=== PATIENT | male | born 1965 | race Caucasian/White ===

== ENCOUNTER 2022-02-24 18:26 | Inpatient (IN) | payer OTHER ==
[2022-02-25] MEDS ORDERED: VANCOMYCIN 1 GM in D5W (PRE-DOCKED) 1,000 MG/250 ML IVPB ONE (00:34)
[2022-02-25] MEDS ORDERED: ACETAMINOPHEN 1000 MG/100 ML BAG IVPB ONE (00:34)
[2022-02-25] MEDS ORDERED: CEFEPIME HCL/D5W 1 GM/50 ML BAG IVPB ONE (00:34)
[2022-02-25] MEDS ORDERED: CEFEPIME 1 GM/100 ML BAG IVPB ONE ×2 (01:26→21:49)
[2022-02-25 01:27] LABS: BASO % 0.1 % (0-2.0); EOS % 1.7 % (0-4.5); HEMATOCRIT 42.6 % (35.4-49); HEMOGLOBIN 14.2 GM/dL (11.7-16.9); LYMPH % 31.8 % (8-40); MCH 28.2 pg (25.7-33.7); MCHC 33.3 g/dl (32.0-35.9); MEAN CELL VOLUME 84.7 fl (80-96); MEAN PLT VOLUME 8.4 fl (7.5-11.1); MONO % 6.2 % (3.8-10.2); NEUT % 60.2 % (42.8-82.8); PLATELET COUNT 310 10^3/uL (134-434); RBC 5.03 M/mm3 (4.00-5.60); RDW 12.9 % (11.9-15.9)
[2022-02-25] MEDS ORDERED: VANCOMYCIN/WATER FOR INJ (PEG) 1,000 MG/200 ML BAG IVPB ONE ×2 (01:27→21:49)
[2022-02-25] MEDS ORDERED: ACETAMINOPHEN INJECTION 100 ML IVPB ONE (01:28)
[2022-02-25] MEDS ORDERED: PIPERACILLIN/TAZOB 3.375 GM 3.375 GM in DEXTROSE 5%-WATER - 50 ML IVPB ONE (06:30)
[2022-02-25] MEDS: INSULIN SLIDING SCALE (NOVOLOG) 1 VIAL SQ SCH ×4 (08:10→22:57)
[2022-02-25] MEDS ORDERED: ENOXAPARIN NA (PORCINE) 40 MG/0.4 ML DISP.SYRIN SQ ONE (12:19)
[2022-02-25] MEDS: ENOXAPARIN NA (PORCINE) 40 MG/0.4 ML DISP.SYRIN SQ SCH (12:23)
[2022-02-25 14:55] LABS: BASO % 0.5 % (0-2.0); EOS % 0.9 % (0-4.5); HEMATOCRIT 42.8 % (35.4-49); HEMOGLOBIN 14.4 GM/dL (11.7-16.9); LYMPH % 25.4 % (8-40); MCH 28.3 pg (25.7-33.7); MCHC 33.7 g/dl (32.0-35.9); MEAN CELL VOLUME 84.1 fl (80-96); MEAN PLT VOLUME 7.9 fl (7.5-11.1); MONO % 5.8 % (3.8-10.2); NEUT % 67.4 % (42.8-82.8); PLATELET COUNT 321 10^3/uL (134-434); RBC 5.09 M/mm3 (4.00-5.60); RDW 13.1 % (11.9-15.9); WHITE BLOOD COUNT 11.5 K/mm3 (4.0-10.0)
[2022-02-25 15:16] LABS: BLOOD UREA NITROGEN 12.1 mg/dL (7-18); CALCIUM 8.7 mg/dL (8.5-10.1); MAGNESIUM 1.7 mg/dL (1.8-2.4)
[2022-02-25 15:17] LABS: ALBUMIN 3.2 g/dl (3.4-5.0)
[2022-02-25 15:19] LABS: PHOSPHOROUS 3.4 mg/dL (2.5-4.9)
[2022-02-25 15:20] LABS: CREATININE 0.7 mg/dL (0.55-1.3)
[2022-02-25 15:21] LABS: BILIRUBIN,TOTAL 0.4 mg/dL (0.2-1); TOT PROT 6.8 g/dl (6.4-8.2)
[2022-02-25] MEDS: CEFEPIME 1 GM in DEXTROSE 5%-WATER 100 ML IVPB SCH (22:00)
[2022-02-25] MEDS: VANCOMYCIN/WATER FOR INJ (PEG) 1,000 MG/200 ML BAG IVPB SCH (22:52)
[2022-02-25] MEDS ORDERED: metroNIDAZOLE 250 MG TABLET ONE (23:02)
[2022-02-25] MEDS: INSULIN (LEVEMIR) 100 UNITS/ML UNITS SQ SCH (23:09)
[2022-02-25] MEDS: metroNIDAZOLE 250 MG TABLET PO SCH (23:09)
[2022-02-26 06:07] VITALS: RESP 18
[2022-02-26] MEDS: CEFEPIME 1 GM in DEXTROSE 5%-WATER 100 ML IVPB SCH ×3 (06:39→17:57)
[2022-02-26] MEDS: INSULIN SLIDING SCALE (NOVOLOG) 1 VIAL SQ SCH ×4 (06:40→23:01)
[2022-02-26] MEDS: metroNIDAZOLE 250 MG TABLET PO SCH ×3 (06:48→22:56)
[2022-02-26] MEDS: VANCOMYCIN/WATER FOR INJ (PEG) 1,000 MG/200 ML BAG IVPB SCH ×2 (08:07→21:04)
[2022-02-26 08:43] LABS: BASO % 0.2 % (0-2.0); EOS % 1.4 % (0-4.5); HEMATOCRIT 41.4 % (35.4-49); HEMOGLOBIN 13.8 GM/dL (11.7-16.9); MCH 28.2 pg (25.7-33.7); MCHC 33.4 g/dl (32.0-35.9); MEAN CELL VOLUME 84.3 fl (80-96); MEAN PLT VOLUME 7.9 fl (7.5-11.1); MONO % 6.6 % (3.8-10.2); NEUT % 65.8 % (42.8-82.8); PLATELET COUNT 315 10^3/uL (134-434); RBC 4.91 M/mm3 (4.00-5.60); RDW 12.7 % (11.9-15.9); WHITE BLOOD COUNT 10.6 K/mm3 (4.0-10.0)
[2022-02-26 09:03] LABS: CALCIUM 8.3 mg/dL (8.5-10.1)
[2022-02-26 09:04] LABS: BLOOD UREA NITROGEN 11.1 mg/dL (7-18); MAGNESIUM 1.7 mg/dL (1.8-2.4)
[2022-02-26 09:06] LABS: CREATININE 0.5 mg/dL (0.55-1.3)
[2022-02-26 09:08] LABS: TOT PROT 6.5 g/dl (6.4-8.2)
[2022-02-26 09:09] LABS: BILIRUBIN,TOTAL 0.4 mg/dL (0.2-1)
[2022-02-26 09:10] LABS: INR 1.05 (0.83-1.09); PROTHROMBIN TIME (PATIENT) 12.1 SEC (9.7-13.0)
[2022-02-26] MEDS ORDERED: MAGNESIUM OXIDE 400 MG TABLET (FP) PO ONE (09:51)
[2022-02-26] MEDS: ENOXAPARIN NA (PORCINE) 40 MG/0.4 ML DISP.SYRIN SQ SCH (09:58)
[2022-02-26] MEDS: LOSARTAN POTASSIUM 25 MG TABLET PO SCH (11:03)
[2022-02-26 15:17] VITALS: TEMP 98
[2022-02-26] MEDS: INSULIN (LEVEMIR) 100 UNITS/ML UNITS SQ SCH (23:00)
[2022-02-27] MEDS: CEFEPIME 1 GM in DEXTROSE 5%-WATER 100 ML IVPB SCH (02:22)
[2022-02-27] MEDS: INSULIN SLIDING SCALE (NOVOLOG) 1 VIAL SQ SCH ×2 (07:11→11:44)
[2022-02-27] MEDS: metroNIDAZOLE 250 MG TABLET PO SCH ×2 (07:12→13:16)
[2022-02-27] MEDS ORDERED: CEFTRIAXONE 2 GM in DEXTROSE 5%-WATER 100 ML IVPB ONE (08:13)
[2022-02-27] MEDS: VANCOMYCIN/WATER FOR INJ (PEG) 1,000 MG/200 ML BAG IVPB SCH (08:17)
[2022-02-27] MEDS: ENOXAPARIN NA (PORCINE) 40 MG/0.4 ML DISP.SYRIN SQ SCH (09:02)
[2022-02-27] MEDS: LOSARTAN POTASSIUM 25 MG TABLET PO SCH (09:02)
[2022-02-27] MEDS ORDERED: DAPTOMYCIN 500 MG in SODIUM CHLORIDE 50 ML IVPB ONE (09:30)
[2022-02-27 11:11] LABS: BASO % 0.3 % (0-2.0); EOS % 1.2 % (0-4.5); HEMATOCRIT 40.3 % (35.4-49); HEMOGLOBIN 13.7 GM/dL (11.7-16.9); LYMPH % 27.1 % (8-40); MCH 28.8 pg (25.7-33.7); MEAN CELL VOLUME 84.7 fl (80-96); MEAN PLT VOLUME 7.9 fl (7.5-11.1); MONO % 7.2 % (3.8-10.2); NEUT % 64.2 % (42.8-82.8); PLATELET COUNT 316 10^3/uL (134-434); RBC 4.75 M/mm3 (4.00-5.60); RDW 12.9 % (11.9-15.9); WHITE BLOOD COUNT 9.3 K/mm3 (4.0-10.0)
[2022-02-27 11:41] VITALS: BMI 29.0
[2022-02-27 11:41] LABS: CALCIUM 8.2 mg/dL (8.5-10.1)
[2022-02-27 11:42] LABS: ALBUMIN 2.9 g/dl (3.4-5.0); BLOOD UREA NITROGEN 12.4 mg/dL (7-18); MAGNESIUM 1.7 mg/dL (1.8-2.4)
[2022-02-27] MEDS ORDERED: INSULIN (NOVOLOG) ASPART 100 UNITS/ML 10ML VIAL ONE (11:43)
[2022-02-27 11:44] LABS: CREATININE 0.6 mg/dL (0.55-1.3)
[2022-02-27 11:46] LABS: BILIRUBIN,TOTAL 0.3 mg/dL (0.2-1); TOT PROT 6.4 g/dl (6.4-8.2)
[2022-02-27 14:36] VITALS: BP 146/89; PULSE 77
[2022-02-28] MEDS ORDERED: MULTIVITAMINS THER W-MINERALS COMBO TABLET (FP) PO SCH (10:00)
== END 2022-02-27 15:16 | disposition home or self-care (01) | DRG 344 ==
LOC: JER 18:26 → JERBED 02-25 01:24 → J6S 02-26 06:25
PROVIDERS: ADMIT Internal Medicine; ATTEND Internal Medicine
DX: E11.69 Type 2 diabetes mellitus with other specified complication (principal); M86.8X7 Other osteomyelitis, ankle and foot; E11.65 Type 2 diabetes mellitus with hyperglycemia; L03.032 Cellulitis of left toe
CPT/HCPCS: 0241U-QW; 36415; 36569; 73630-TC-LT; 73721-LT-TC; 80053; 82550; 82962; 83036; 83605; 83735; 84100; 85025; 85610; 85651; 86140; 87040; 93005; 93010; 93926-TC; 93971-TC; 99285-25; J0878

== ENCOUNTER 2022-02-28 10:46 | Day surgery (SDC) | payer OTHER ==
[2022-02-28] MEDS ORDERED: CEFTRIAXONE 2 GM in DEXTROSE 5%-WATER 100 ML IVPB ONE (11:15)
[2022-02-28 12:34] VITALS: BP 132/67; PULSE 68; RESP 18; TEMP 97.9
== END 2022-02-28 11:50 | disposition home or self-care (01) ==
LOC: FINFUSION 10:46 → FM/S 10:47 → FINFUSION 11:50
PROVIDERS: ATTEND Internal Medicine
DX: M86.9 Osteomyelitis, unspecified (principal)
CPT/HCPCS: 96365

== ENCOUNTER 2022-03-01 10:47 | Day surgery (SDC) | payer OTHER ==
[2022-03-01] MEDS ORDERED: cefTRIAXone 2 GM/100 ML BAG (PRE-DOCKED) IVPB SCH (11:15)
[2022-03-01 12:03] VITALS: BP 133/73; PULSE 71; RESP 17; TEMP 98.4
== END 2022-03-01 12:08 | disposition home or self-care (01) ==
LOC: FINFUSION 10:47 → FM/S 10:47 → FINFUSION 12:08
PROVIDERS: ATTEND Internal Medicine
DX: M86.9 Osteomyelitis, unspecified (principal)
CPT/HCPCS: 96365

== ENCOUNTER 2022-03-02 10:24 | Day surgery (SDC) | payer OTHER ==
[2022-03-02] MEDS ORDERED: CEFTRIAXONE 2 GM in DEXTROSE 5%-WATER 100 ML IVPB ONE (11:45)
[2022-03-02 12:27] VITALS: BP 118/69; PULSE 78; RESP 18; TEMP 99
== END 2022-03-02 12:25 | disposition home or self-care (01) ==
LOC: FINFUSION 10:24 → FM/S 10:26 → FINFUSION 12:25
PROVIDERS: ATTEND Internal Medicine
CPT/HCPCS: 96365

== ENCOUNTER 2022-03-03 10:48 | Day surgery (SDC) | payer OTHER ==
[2022-03-03] MEDS ORDERED: CEFTRIAXONE 2 GM in DEXTROSE 5%-WATER 100 ML IVPB ONE (12:00)
[2022-03-03 12:26] VITALS: BP 132/80; PULSE 72; RESP 17; TEMP 98
== END 2022-03-03 12:26 | disposition home or self-care (01) ==
LOC: FINFUSION 10:48 → FM/S 10:49 → FINFUSION 12:26
PROVIDERS: ATTEND Internal Medicine
DX: M86.9 Osteomyelitis, unspecified (principal)
CPT/HCPCS: 96365; 96367

== ENCOUNTER 2022-03-04 10:59 | Day surgery (SDC) | payer OTHER ==
[2022-03-04 11:19] VITALS: RESP 18; TEMP 98.7
[2022-03-04] MEDS ORDERED: CEFTRIAXONE 2 GM in SODIUM CHLORIDE 100 ML IVPB ONE (11:30)
[2022-03-04 12:10] VITALS: BP 130/67; PULSE 86
== END 2022-03-04 12:11 | disposition home or self-care (01) ==
LOC: FM/S 10:59 → FINFUSION 10:59
PROVIDERS: ATTEND Internal Medicine
DX: M86.9 Osteomyelitis, unspecified (principal)
CPT/HCPCS: 96365

== ENCOUNTER 2022-03-05 10:36 | Day surgery (SDC) | payer OTHER ==
[2022-03-05 10:52] VITALS: TEMP 98.4
[2022-03-05] MEDS ORDERED: CEFTRIAXONE 2 GM in SODIUM CHLORIDE 100 ML IVPB ONE (11:00)
[2022-03-05 11:37] VITALS: BP 132/72; PULSE 82; RESP 17
== END 2022-03-05 17:30 | disposition home or self-care (01) ==
LOC: FINFUSION 10:36 → FM/S 10:37 → FINFUSION 17:30
PROVIDERS: ATTEND Internal Medicine
DX: M86.9 Osteomyelitis, unspecified (principal)
CPT/HCPCS: 96365

== ENCOUNTER 2022-03-06 10:40 | Day surgery (SDC) | payer OTHER ==
[2022-03-06] MEDS ORDERED: CEFTRIAXONE 2 GM in SODIUM CHLORIDE 100 ML IVPB ONE (11:30)
[2022-03-06 11:40] VITALS: BP 132/78; TEMP 97.9
[2022-03-06 12:17] LABS: HEMATOCRIT 40.9 % (35.4-49); HEMOGLOBIN 13.9 G/dL (11.7-16.9); MCH 29.2 pg (25.7-33.7); MCHC 34.1 g/dl (32.0-35.9); MEAN CELL VOLUME 85.8 fl (80-96); MEAN PLT VOLUME 7.9 fl (7.5-11.1); PLATELET COUNT 279.4 10^3/uL (134-434); RBC 4.77 10^6/uL (4.00-5.60); RDW 13.7 % (11.9-15.9)
[2022-03-06 12:24] LABS: ALBUMIN 3.5 g/dl (3.4-5.0); BILIRUBIN,TOTAL 0.6 mg/dl (0.2-1); CALCIUM 8.6 mg/dl (8.5-10); CREATININE 0.6 mg/dl (0.55-1.3); TOT PROT 6.6 g/dl (6.4-8.2)
[2022-03-06 14:06] VITALS: PULSE 72; RESP 17
== END 2022-03-06 12:10 | disposition home or self-care (01) ==
LOC: FM/S 10:40 → FINFUSION 10:40
PROVIDERS: ATTEND Internal Medicine
DX: M86.9 Osteomyelitis, unspecified (principal)
CPT/HCPCS: 36415; 80053; 85027; 86140; 96365

== ENCOUNTER 2022-03-07 10:53 | Day surgery (SDC) | payer OTHER ==
[2022-03-07] MEDS ORDERED: CEFTRIAXONE 2 GM in SODIUM CHLORIDE 100 ML IVPB ONE (11:15)
[2022-03-07 12:03] VITALS: BP 155/87; PULSE 74; RESP 18; TEMP 97.8
== END 2022-03-07 12:04 | disposition home or self-care (01) ==
LOC: FINFUSION 10:53 → FM/S 10:53 → FINFUSION 12:04
PROVIDERS: ATTEND Internal Medicine
DX: M86.9 Osteomyelitis, unspecified (principal)
CPT/HCPCS: 96365

== ENCOUNTER 2022-03-08 11:08 | Day surgery (SDC) | payer OTHER ==
[2022-03-08] MEDS ORDERED: cefTRIAXone 2 GM/100 ML BAG (PRE-DOCKED) IVPB SCH (11:30)
[2022-03-08 12:19] VITALS: BP 140/86; PULSE 82; RESP 16; TEMP 98
== END 2022-03-08 12:20 | disposition home or self-care (01) ==
LOC: FM/S 11:08 → FINFUSION 11:08
PROVIDERS: ATTEND Internal Medicine
PROC: 3E033GC Introduction of Other Therapeutic Substance into Peripheral Vein, Percutaneous Approach (ICD-10-PCS; principal; 2022-03-08)
DX: M86.9 Osteomyelitis, unspecified (principal)
CPT/HCPCS: 96365

== ENCOUNTER 2022-03-09 10:48 | Day surgery (SDC) | payer OTHER ==
[2022-03-09] MEDS ORDERED: CEFTRIAXONE 2 GM in DEXTROSE 5%-WATER 100 ML IVPB ONE (11:30)
[2022-03-09 12:14] VITALS: BP 129/76; PULSE 75; RESP 15; TEMP 98.3
== END 2022-03-09 12:14 | disposition home or self-care (01) ==
LOC: FINFUSION 10:48 → FM/S 10:54 → FINFUSION 12:14
PROVIDERS: ATTEND Internal Medicine
PROC: 3E033GC Introduction of Other Therapeutic Substance into Peripheral Vein, Percutaneous Approach (ICD-10-PCS; principal; 2022-03-09)
DX: M86.9 Osteomyelitis, unspecified (principal)
CPT/HCPCS: 96365

== ENCOUNTER 2022-03-10 11:05 | Day surgery (SDC) | payer OTHER ==
[2022-03-10] MEDS ORDERED: CEFTRIAXONE 2 GM in SODIUM CHLORIDE 100 ML IVPB ONE (11:15)
[2022-03-10 11:23] VITALS: TEMP 98.4
[2022-03-10 12:09] VITALS: BP 141/87; PULSE 80; RESP 18
== END 2022-03-10 12:09 | disposition home or self-care (01) ==
LOC: FM/S 11:05 → FINFUSION 11:05
PROVIDERS: ATTEND Internal Medicine
PROC: 3E033GC Introduction of Other Therapeutic Substance into Peripheral Vein, Percutaneous Approach (ICD-10-PCS; principal; 2022-03-10)
DX: M86.9 Osteomyelitis, unspecified (principal)
CPT/HCPCS: 96365

== ENCOUNTER 2022-03-11 10:48 | Day surgery (SDC) | payer OTHER ==
[2022-03-11] MEDS ORDERED: CEFTRIAXONE 2 GM in SODIUM CHLORIDE 100 ML IVPB ONE (11:00)
[2022-03-11 18:14] VITALS: BP 129/73; PULSE 85; RESP 18; TEMP 97.8
== END 2022-03-11 13:30 | disposition home or self-care (01) ==
LOC: FM/S 10:48 → FINFUSION 10:48
PROVIDERS: ATTEND Internal Medicine
DX: M86.9 Osteomyelitis, unspecified (principal)
CPT/HCPCS: 96365

== ENCOUNTER 2022-03-12 10:23 | Day surgery (SDC) | payer OTHER ==
[2022-03-12] MEDS ORDERED: CEFTRIAXONE 2 GM in SODIUM CHLORIDE 100 ML IVPB ONE (10:45)
[2022-03-12 11:40] VITALS: BP 119/69; PULSE 89; RESP 18; TEMP 98.2
== END 2022-03-12 11:44 | disposition home or self-care (01) ==
LOC: FINFUSION 10:23 → FM/S 10:24 → FINFUSION 11:44
PROVIDERS: ATTEND Internal Medicine
DX: M86.9 Osteomyelitis, unspecified (principal); E11.628 Type 2 diabetes mellitus with other skin complications; E11.65 Type 2 diabetes mellitus with hyperglycemia; L03.90 Cellulitis, unspecified
CPT/HCPCS: 96365

== ENCOUNTER 2022-03-13 10:28 | Day surgery (SDC) | payer OTHER ==
[2022-03-13] MEDS ORDERED: CEFTRIAXONE 2 GM in SODIUM CHLORIDE 100 ML IVPB ONE (11:00)
[2022-03-13 11:46] VITALS: BP 126/74; PULSE 78; RESP 16; TEMP 97.8
[2022-03-13 12:08] LABS: MCH 29.7 pg (25.7-33.7); MCHC 34.2 g/dl (32.0-35.9); MEAN CELL VOLUME 86.8 fl (80-96); MEAN PLT VOLUME 8.4 fl (7.5-11.1); PLATELET COUNT 259.8 10^3/uL (134-434); RBC 4.72 10^6/uL (4.00-5.60); RDW 13.9 % (11.9-15.9); WHITE BLOOD COUNT 9.3 10^3/uL (4.0-10.8)
[2022-03-13 12:10] LABS: ALBUMIN 3.6 g/dl (3.4-5.0); ALK PHOS 71 U/L (45-117); ANION GAP 9 MMOL/L (8-16); BILIRUBIN,TOTAL 0.6 mg/dl (0.2-1); CHLORIDE 101 mmol/L (98-107); CO2 26 mmol/L (21-32); CREATININE 0.7 mg/dl (0.55-1.3); GLUCOSE,RANDOM 282 mg/dl (74-106); SGOT/AST 19 U/L (15-37); SGPT/ALT 26 U/L (13-61); SODIUM 136 mmol/L (136-145); TOT PROT 6.6 g/dl (6.4-8.2)
== END 2022-03-13 11:46 | disposition home or self-care (01) ==
LOC: FINFUSION 10:28 → FM/S 10:28 → FINFUSION 11:46
PROVIDERS: ATTEND Internal Medicine
DX: M86.9 Osteomyelitis, unspecified (principal)
CPT/HCPCS: 36415; 80053; 85027; 86140; 96365

== ENCOUNTER 2022-03-14 10:29 | Day surgery (SDC) | payer OTHER ==
[2022-03-14] MEDS ORDERED: CEFTRIAXONE 2 GM in SODIUM CHLORIDE 100 ML IVPB ONE (11:00)
[2022-03-14 11:28] VITALS: BP 138/85; PULSE 76; RESP 18; TEMP 98.1
== END 2022-03-14 13:06 | disposition home or self-care (01) ==
LOC: FINFUSION 10:29 → FM/S 10:30 → FINFUSION 13:06
PROVIDERS: ATTEND Internal Medicine
DX: M86.9 Osteomyelitis, unspecified (principal)
CPT/HCPCS: 96365

== ENCOUNTER 2022-03-15 10:38 | Day surgery (SDC) | payer OTHER ==
[2022-03-15] MEDS ORDERED: cefTRIAXone 2 GM/100 ML BAG (PRE-DOCKED) IVPB SCH (11:00)
[2022-03-15 12:03] VITALS: BP 146/88; PULSE 82; RESP 16; TEMP 97.7
== END 2022-03-15 11:50 | disposition home or self-care (01) ==
LOC: FINFUSION 10:38 → FM/S 10:41 → FINFUSION 11:50
PROVIDERS: ATTEND Internal Medicine
DX: M86.9 Osteomyelitis, unspecified (principal)
CPT/HCPCS: 96365

== ENCOUNTER 2022-03-16 10:35 | Day surgery (SDC) | payer OTHER ==
[2022-03-16] MEDS ORDERED: CEFTRIAXONE 2 GM in DEXTROSE 5%-WATER 100 ML IVPB ONE (11:00)
[2022-03-16 12:01] VITALS: BP 137/80; PULSE 78; RESP 18; TEMP 98.9
== END 2022-03-16 11:40 | disposition home or self-care (01) ==
LOC: FINFUSION 10:35 → FM/S 10:36 → FINFUSION 11:40
PROVIDERS: ATTEND Internal Medicine
DX: M86.9 Osteomyelitis, unspecified (principal)
CPT/HCPCS: 96365

== ENCOUNTER 2022-03-17 10:48 | Day surgery (SDC) | payer OTHER ==
[2022-03-17] MEDS ORDERED: CEFTRIAXONE 2 GM in DEXTROSE 5%-WATER 100 ML IVPB ONE (11:15)
[2022-03-17 12:13] VITALS: BP 137/80; PULSE 84; RESP 18; TEMP 98.9
== END 2022-03-17 11:45 | disposition home or self-care (01) ==
LOC: FINFUSION 10:48 → FM/S 10:49 → FINFUSION 11:45
PROVIDERS: ATTEND Internal Medicine
DX: M86.9 Osteomyelitis, unspecified (principal)
CPT/HCPCS: 96365

== ENCOUNTER 2022-03-18 10:37 | Day surgery (SDC) | payer OTHER ==
[2022-03-18] MEDS ORDERED: CEFTRIAXONE 2 GM in DEXTROSE 5%-WATER 100 ML IVPB ONE (11:00)
[2022-03-18 11:54] VITALS: BP 149/80; PULSE 80; RESP 16; TEMP 97.6
== END 2022-03-18 11:55 | disposition home or self-care (01) ==
LOC: FINFUSION 10:37 → FM/S 10:39 → FINFUSION 11:55
PROVIDERS: ATTEND Internal Medicine
DX: M86.9 Osteomyelitis, unspecified (principal)
CPT/HCPCS: 96365

== ENCOUNTER 2022-03-19 10:40 | Day surgery (SDC) | payer OTHER ==
[2022-03-19] MEDS ORDERED: CEFTRIAXONE 2 GM in SODIUM CHLORIDE 100 ML IVPB ONE (11:00)
[2022-03-19 11:44] VITALS: BP 160/58; PULSE 81; RESP 18; TEMP 98.1
== END 2022-03-19 11:44 | disposition home or self-care (01) ==
LOC: FINFUSION 10:40 → FM/S 10:40 → FINFUSION 11:44
PROVIDERS: ATTEND Internal Medicine
DX: M86.9 Osteomyelitis, unspecified (principal)
CPT/HCPCS: 96365

== ENCOUNTER 2022-03-20 10:39 | Day surgery (SDC) | payer OTHER ==
[2022-03-20] MEDS ORDERED: CEFTRIAXONE 2 GM in SODIUM CHLORIDE 100 ML IVPB ONE (11:00)
[2022-03-20 12:00] VITALS: BP 153/82; PULSE 72; RESP 18; TEMP 98.3
[2022-03-20 13:35] LABS: HEMATOCRIT 40.6 % (35.4-49); HEMOGLOBIN 14.1 G/dL (11.7-16.9); MCH 29.9 pg (25.7-33.7); MCHC 34.7 g/dl (32.0-35.9); MEAN PLT VOLUME 9.1 fl (7.5-11.1); PLATELET COUNT 238.8 10^3/uL (134-434); RBC 4.72 10^6/uL (4.00-5.60); RDW 13.5 % (11.9-15.9); WHITE BLOOD COUNT 8.4 10^3/uL (4.0-10.8)
[2022-03-20 14:04] LABS: ALBUMIN 3.9 g/dl (3.4-5.0); BILIRUBIN,TOTAL 0.7 mg/dl (0.2-1); CALCIUM 8.9 mg/dl (8.5-10); CREATININE 0.7 mg/dl (0.55-1.3); TOT PROT 6.9 g/dl (6.4-8.2)
== END 2022-03-20 12:02 | disposition home or self-care (01) ==
LOC: FINFUSION 10:39 → FM/S 10:39 → FINFUSION 12:02
PROVIDERS: ATTEND Internal Medicine
DX: M86.9 Osteomyelitis, unspecified (principal)
CPT/HCPCS: 36415; 80053; 85027; 86140; 96365

== ENCOUNTER 2022-03-21 10:47 | Day surgery (SDC) | payer OTHER ==
[2022-03-21] MEDS ORDERED: CEFTRIAXONE 2 GM in SODIUM CHLORIDE 100 ML IVPB ONE (11:00)
[2022-03-21 12:12] VITALS: BP 132/65; PULSE 76; RESP 18; TEMP 98.1
== END 2022-03-21 12:12 | disposition home or self-care (01) ==
LOC: FINFUSION 10:47 → FM/S 10:48 → FINFUSION 12:12
PROVIDERS: ATTEND Internal Medicine
DX: M86.9 Osteomyelitis, unspecified (principal)
CPT/HCPCS: 96365

== ENCOUNTER 2022-03-22 11:05 | Day surgery (SDC) | payer OTHER ==
[2022-03-22] MEDS ORDERED: cefTRIAXone 2 GM/100 ML BAG (PRE-DOCKED) IVPB SCH (11:30)
[2022-03-22 12:17] VITALS: BP 148/56; PULSE 78; RESP 18; TEMP 98.1
== END 2022-03-22 12:18 | disposition home or self-care (01) ==
LOC: FINFUSION 11:05 → FM/S 11:06 → FINFUSION 12:18
PROVIDERS: ATTEND Internal Medicine
DX: M86.9 Osteomyelitis, unspecified (principal)
CPT/HCPCS: 96365

== ENCOUNTER 2022-03-23 10:41 | Day surgery (SDC) | payer OTHER ==
[2022-03-23] MEDS ORDERED: CEFTRIAXONE 2 GM in DEXTROSE 5%-WATER 100 ML IVPB ONE (11:00)
[2022-03-23 11:40] VITALS: BP 125/73; PULSE 76; RESP 14; TEMP 97.5
== END 2022-03-23 11:40 | disposition home or self-care (01) ==
LOC: FINFUSION 10:41 → FM/S 10:45 → FINFUSION 11:40
PROVIDERS: ATTEND Internal Medicine
DX: M86.9 Osteomyelitis, unspecified (principal)
CPT/HCPCS: 96365

== ENCOUNTER 2022-03-24 10:53 | Day surgery (SDC) | payer OTHER ==
[2022-03-24] MEDS ORDERED: CEFTRIAXONE 2 GM in SODIUM CHLORIDE 100 ML IVPB ONE (11:15)
[2022-03-24 11:47] VITALS: BP 149/62; PULSE 82; RESP 18; TEMP 98.1
== END 2022-03-24 11:50 | disposition home or self-care (01) ==
LOC: FINFUSION 10:53 → FM/S 10:53 → FINFUSION 11:50
PROVIDERS: ATTEND Internal Medicine
DX: M86.9 Osteomyelitis, unspecified (principal)
CPT/HCPCS: 96365

== ENCOUNTER 2022-03-25 10:55 | Day surgery (SDC) | payer OTHER ==
[2022-03-25 11:15] VITALS: PULSE 81; RESP 18; TEMP 98.1
[2022-03-25] MEDS ORDERED: CEFTRIAXONE 2 GM in SODIUM CHLORIDE 100 ML IVPB ONE (11:15)
[2022-03-25 12:28] VITALS: BP 155/81
== END 2022-03-25 12:29 | disposition home or self-care (01) ==
LOC: FINFUSION 10:55 → FM/S 10:56 → FINFUSION 12:29
PROVIDERS: ATTEND Internal Medicine
DX: M86.9 Osteomyelitis, unspecified (principal)
CPT/HCPCS: 96365

== ENCOUNTER 2022-03-26 09:33 | Day surgery (SDC) | payer OTHER ==
[2022-03-26] MEDS ORDERED: CEFTRIAXONE 2 GM in SODIUM CHLORIDE 100 ML IVPB ONE (10:00)
[2022-03-26 10:33] VITALS: BP 147/52; PULSE 80; RESP 18; TEMP 97.8
== END 2022-03-26 10:33 | disposition home or self-care (01) ==
LOC: FINFUSION 09:33 → FM/S 09:38 → FINFUSION 10:33
PROVIDERS: ATTEND Internal Medicine
DX: M86.9 Osteomyelitis, unspecified (principal)
CPT/HCPCS: 96365

== ENCOUNTER 2022-03-27 10:25 | Day surgery (SDC) | payer OTHER ==
[2022-03-27] MEDS ORDERED: CEFTRIAXONE 2 GM in SODIUM CHLORIDE 100 ML IVPB ONE (10:45)
[2022-03-27 10:55] LABS: HEMATOCRIT 38.9 % (35.4-49); HEMOGLOBIN 13.9 G/dL (11.7-16.9); MCH 30.6 pg (25.7-33.7); MCHC 35.6 g/dl (32.0-35.9); MEAN CELL VOLUME 86.1 fl (80-96); MEAN PLT VOLUME 8.1 fl (7.5-11.1); PLATELET COUNT 223.8 10^3/uL (134-434); RBC 4.52 10^6/uL (4.00-5.60); RDW 13.7 % (11.9-15.9); WHITE BLOOD COUNT 8.7 10^3/uL (4.0-10.8)
[2022-03-27 11:07] VITALS: RESP 18; TEMP 98
[2022-03-27 11:10] LABS: ALBUMIN 3.9 g/dl (3.4-5.0); ALK PHOS 85 U/L (45-117); ANION GAP 7 MMOL/L (8-16); BILIRUBIN,TOTAL 0.6 mg/dl (0.2-1); CALCIUM 8.7 mg/dl (8.5-10); CHLORIDE 101 mmol/L (98-107); CO2 28 mmol/L (21-32); CREATININE 0.7 mg/dl (0.55-1.3); GLUCOSE,RANDOM 342 mg/dl (74-106); SGOT/AST 21 U/L (15-37); SGPT/ALT 25 U/L (13-61); SODIUM 136 mmol/L (136-145); TOT PROT 7.2 g/dl (6.4-8.2)
[2022-03-27 11:36] VITALS: BP 127/66; PULSE 88
== END 2022-03-27 11:36 | disposition home or self-care (01) ==
LOC: FINFUSION 10:25 → FM/S 10:26 → FINFUSION 11:36
PROVIDERS: ATTEND Internal Medicine
DX: M86.9 Osteomyelitis, unspecified (principal)
CPT/HCPCS: 36415; 80053; 85027; 86140; 96365

== ENCOUNTER 2022-03-28 10:49 | Day surgery (SDC) | payer OTHER ==
[2022-03-28] MEDS ORDERED: CEFTRIAXONE 2 GM in SODIUM CHLORIDE 100 ML IVPB ONE (11:15)
[2022-03-28 11:58] VITALS: BP 134/75; PULSE 79; RESP 19; TEMP 98.9
== END 2022-03-28 12:24 | disposition home or self-care (01) ==
LOC: FINFUSION 10:49 → FM/S 10:52 → FINFUSION 12:24
PROVIDERS: ATTEND Internal Medicine
DX: M86.9 Osteomyelitis, unspecified (principal)
CPT/HCPCS: 96365

== ENCOUNTER 2022-03-29 10:48 | Day surgery (SDC) | payer OTHER ==
[2022-03-29] MEDS ORDERED: cefTRIAXone 2 GM/100 ML BAG (PRE-DOCKED) IVPB SCH (11:00)
[2022-03-29 11:59] VITALS: BP 139/84; PULSE 78; RESP 18; TEMP 97.8
== END 2022-03-29 12:00 | disposition home or self-care (01) ==
LOC: FM/S 10:48 → FINFUSION 10:48
PROVIDERS: ATTEND Internal Medicine
DX: M86.9 Osteomyelitis, unspecified (principal)
CPT/HCPCS: 96365

== ENCOUNTER 2022-03-30 10:42 | Day surgery (SDC) | payer OTHER ==
[2022-03-30 11:12] VITALS: RESP 18; TEMP 97.8
[2022-03-30 11:42] VITALS: BP 121/86; PULSE 86
== END 2022-03-30 11:43 | disposition home or self-care (01) ==
LOC: FINFUSION 10:42 → FM/S 10:42 → FINFUSION 11:43
PROVIDERS: ATTEND Internal Medicine
DX: M86.9 Osteomyelitis, unspecified (principal)
CPT/HCPCS: 96365

== ENCOUNTER 2022-03-31 10:40 | Day surgery (SDC) | payer OTHER ==
[2022-03-31] MEDS ORDERED: CEFTRIAXONE 2 GM in SODIUM CHLORIDE 100 ML IVPB ONE (10:45)
[2022-03-31 10:52] VITALS: RESP 18; TEMP 98.4
[2022-03-31 11:23] VITALS: BP 136/80; PULSE 72
== END 2022-03-31 11:26 | disposition home or self-care (01) ==
LOC: FINFUSION 10:40 → FM/S 10:40 → FINFUSION 11:26
PROVIDERS: ATTEND Internal Medicine
DX: M86.9 Osteomyelitis, unspecified (principal)
CPT/HCPCS: 96365

== ENCOUNTER 2022-04-01 10:49 | Day surgery (SDC) | payer OTHER ==
[2022-04-01] MEDS ORDERED: CEFTRIAXONE 2 GM in SODIUM CHLORIDE 100 ML IVPB ONE (11:00)
[2022-04-01 11:52] VITALS: BP 143/80; PULSE 80; RESP 18; TEMP 97.9
== END 2022-04-01 11:53 | disposition home or self-care (01) ==
LOC: FINFUSION 10:49 → FM/S 10:49 → FINFUSION 11:53
PROVIDERS: ATTEND Internal Medicine
PROC: 3E033GC Introduction of Other Therapeutic Substance into Peripheral Vein, Percutaneous Approach (ICD-10-PCS; principal; 2022-04-01)
PROC: 3E04329 Introduction of Other Anti-infective into Central Vein, Percutaneous Approach (ICD-10-PCS; 2022-04-01)
DX: M86.9 Osteomyelitis, unspecified (principal)
CPT/HCPCS: 96365

== ENCOUNTER 2022-04-02 10:44 | Day surgery (SDC) | payer OTHER ==
[2022-04-02] MEDS ORDERED: CEFTRIAXONE 2 GM in SODIUM CHLORIDE 100 ML IVPB ONE (10:50)
[2022-04-02 11:39] VITALS: BP 154/84; PULSE 82; RESP 18; TEMP 98.1
== END 2022-04-02 11:55 | disposition home or self-care (01) ==
LOC: FINFUSION 10:44 → FM/S 10:45 → FINFUSION 11:55
PROVIDERS: ATTEND Internal Medicine
DX: M86.9 Osteomyelitis, unspecified (principal)
CPT/HCPCS: 96365

== ENCOUNTER 2022-04-03 10:34 | Day surgery (SDC) | payer OTHER ==
[2022-04-03] MEDS ORDERED: CEFTRIAXONE 2 GM in SODIUM CHLORIDE 100 ML IVPB ONE (11:00)
[2022-04-03 11:49] LABS: HEMATOCRIT 41.1 % (35.4-49); HEMOGLOBIN 14.3 G/dL (11.7-16.9); MCH 29.5 pg (25.7-33.7); MCHC 34.7 g/dl (32.0-35.9); MEAN CELL VOLUME 84.9 fl (80-96); MEAN PLT VOLUME 8.3 fl (7.5-11.1); PLATELET COUNT 263.9 10^3/uL (134-434); RBC 4.84 10^6/uL (4.00-5.60); WHITE BLOOD COUNT 10.4 10^3/uL (4.0-10.8)
[2022-04-03 11:54] VITALS: BP 138/80; PULSE 80; RESP 16; TEMP 97.7
[2022-04-03 12:21] LABS: ALBUMIN 3.9 g/dl (3.4-5.0); BILIRUBIN,TOTAL 0.6 mg/dl (0.2-1); CALCIUM 9.1 mg/dl (8.5-10); CREATININE 0.7 mg/dl (0.55-1.3); TOT PROT 6.9 g/dl (6.4-8.2)
== END 2022-04-03 11:55 | disposition home or self-care (01) ==
LOC: FINFUSION 10:34 → FM/S 10:35 → FINFUSION 11:55
PROVIDERS: ATTEND Internal Medicine
DX: M86.9 Osteomyelitis, unspecified (principal)
CPT/HCPCS: 36415; 80053; 85027; 86140; 96365

== ENCOUNTER 2022-04-04 10:45 | Day surgery (SDC) | payer OTHER ==
[2022-04-04] MEDS ORDERED: CEFTRIAXONE 2 GM in SODIUM CHLORIDE 100 ML IVPB ONE (11:30)
[2022-04-04 12:04] VITALS: BP 130/77; PULSE 77; RESP 18; TEMP 98.3
== END 2022-04-04 12:08 | disposition home or self-care (01) ==
LOC: FINFUSION 10:45 → FM/S 10:46 → FINFUSION 12:08
PROVIDERS: ATTEND Internal Medicine
DX: M86.9 Osteomyelitis, unspecified (principal)
CPT/HCPCS: 96365

== ENCOUNTER 2022-04-05 10:42 | Day surgery (SDC) | payer OTHER ==
[2022-04-05] MEDS ORDERED: cefTRIAXone 2 GM/100 ML BAG (PRE-DOCKED) IVPB SCH (11:00)
[2022-04-05 11:19] VITALS: RESP 18; TEMP 98.7
[2022-04-05 11:43] VITALS: BP 140/72; PULSE 75
== END 2022-04-05 11:43 | disposition home or self-care (01) ==
LOC: FINFUSION 10:42 → FM/S 10:43 → FINFUSION 11:43
PROVIDERS: ATTEND Internal Medicine
DX: M86.9 Osteomyelitis, unspecified (principal)
CPT/HCPCS: 96365

== ENCOUNTER 2022-04-06 10:44 | Day surgery (SDC) | payer OTHER ==
[2022-04-06] MEDS ORDERED: CEFTRIAXONE 2 GM in SODIUM CHLORIDE 100 ML IVPB ONE (11:45)
[2022-04-06 12:34] VITALS: BP 100/62; PULSE 78; RESP 18; TEMP 98.8
== END 2022-04-06 12:28 | disposition home or self-care (01) ==
LOC: FINFUSION 10:44 → FM/S 10:50 → FINFUSION 12:28
PROVIDERS: ATTEND Internal Medicine
DX: M86.9 Osteomyelitis, unspecified (principal)
CPT/HCPCS: 96365

== ENCOUNTER 2022-04-07 10:29 | Day surgery (SDC) | payer OTHER ==
[2022-04-07] MEDS ORDERED: CEFTRIAXONE 2 GM in DEXTROSE 5%-WATER 100 ML IVPB ONE (10:45)
[2022-04-07 11:33] VITALS: BP 150/67; PULSE 87; RESP 17; TEMP 97.6
== END 2022-04-07 11:33 | disposition home or self-care (01) ==
LOC: FM/S 10:29 → FINFUSION 10:29
PROVIDERS: ATTEND Internal Medicine
DX: M86.9 Osteomyelitis, unspecified (principal)
CPT/HCPCS: 96365

== ENCOUNTER 2022-04-08 11:04 | Day surgery (SDC) | payer OTHER ==
[2022-04-08] MEDS ORDERED: CEFTRIAXONE 2 GM in SODIUM CHLORIDE 100 ML IVPB ONE (11:15)
[2022-04-08 12:16] VITALS: BP 140/80; PULSE 77; RESP 17; TEMP 98.3
== END 2022-04-08 12:23 | disposition home or self-care (01) ==
LOC: FINFUSION 11:04 → FM/S 11:05 → FINFUSION 12:23
PROVIDERS: ATTEND Internal Medicine
DX: M86.9 Osteomyelitis, unspecified (principal)
CPT/HCPCS: 96365

== ENCOUNTER 2022-12-21 12:26 | Day surgery (SDC) | payer OTHER ==
[2022-12-21] MEDS ORDERED: CEFTRIAXONE 2 GM in DEXTROSE 5%-WATER 100 ML IVPB ONE (13:00)
[2022-12-21 13:27] VITALS: BP 138/72; RESP 18; TEMP 98.1
[2022-12-21 15:00] VITALS: PULSE 78
== END 2022-12-21 14:00 | disposition home or self-care (01) ==
LOC: FINFUSION 12:26 → FM/S 12:27 → FINFUSION 14:00
PROVIDERS: ATTEND Internal Medicine
DX: E11.621 Type 2 diabetes mellitus with foot ulcer (principal); L97.509 Non-pressure chronic ulcer of other part of unspecified foot with unspecified severity; L03.90 Cellulitis, unspecified; E11.65 Type 2 diabetes mellitus with hyperglycemia
CPT/HCPCS: 96365

== ENCOUNTER 2022-12-22 12:29 | Day surgery (SDC) | payer OTHER ==
[2022-12-22] MEDS ORDERED: CEFTRIAXONE 2 GM in SODIUM CHLORIDE 100 ML IVPB ONE (13:00)
[2022-12-22 13:57] VITALS: BP 145/82; PULSE 72; RESP 16; TEMP 97.7
[2022-12-22 14:33] LABS: HEMATOCRIT 42.6 % (35.4-49); HEMOGLOBIN 14.2 G/dL (11.7-16.9); MCH 28.6 pg (25.7-33.7); MCHC 33.3 g/dl (32.0-35.9); MEAN CELL VOLUME 85.8 fl (80-96); PLATELET COUNT 262.8 10^3/uL (134-434); RBC 4.96 10^6/uL (4.00-5.60); RDW 13.9 % (11.9-15.9); WHITE BLOOD COUNT 9.5 10^3/uL (4.0-10.8)
[2022-12-22 14:35] LABS: ALBUMIN 4.3 g/dl (3.4-5.0); BILIRUBIN,TOTAL 0.4 mg/dl (0.2-1); CALCIUM 9.5 mg/dl (8.5-10.1); CREATININE 0.7 mg/dl (0.6-1.3); POTASSIUM 4.2 mmol/L (3.5-5.1); TOT PROT 7.1 g/dl (6.4-8.2)
== END 2022-12-22 13:57 | disposition home or self-care (01) ==
LOC: FINFUSION 12:29 → FM/S 12:33 → FINFUSION 13:57
PROVIDERS: ATTEND Internal Medicine
DX: M86.8X7 Other osteomyelitis, ankle and foot (principal)
CPT/HCPCS: 36415; 80053; 85027; 86140; 96365

== ENCOUNTER 2022-12-23 12:44 | Day surgery (SDC) | payer OTHER ==
[2022-12-23] MEDS ORDERED: CEFTRIAXONE 2 GM in SODIUM CHLORIDE 100 ML IVPB ONE (13:15)
[2022-12-23 13:48] VITALS: BP 137/77; PULSE 67; RESP 18; TEMP 98.1
== END 2022-12-23 13:48 | disposition home or self-care (01) ==
LOC: FINFUSION 12:44 → FM/S 12:49 → FINFUSION 13:48
PROVIDERS: ATTEND Internal Medicine
DX: M86.8X7 Other osteomyelitis, ankle and foot (principal)
CPT/HCPCS: 96365

== ENCOUNTER 2022-12-24 12:40 | Day surgery (SDC) | payer OTHER ==
[2022-12-24] MEDS ORDERED: CEFTRIAXONE 2 GM in SODIUM CHLORIDE 100 ML IVPB ONE (13:00)
[2022-12-24 13:35] VITALS: RESP 18; TEMP 97.6
[2022-12-24 14:13] VITALS: BP 123/87; PULSE 72
== END 2022-12-24 14:15 | disposition home or self-care (01) ==
LOC: FM/S 12:40 → FINFUSION 12:40
PROVIDERS: ATTEND Internal Medicine
DX: M86.8X7 Other osteomyelitis, ankle and foot (principal)
CPT/HCPCS: 96365

== ENCOUNTER 2022-12-25 12:34 | Day surgery (SDC) | payer OTHER ==
[2022-12-25] MEDS ORDERED: CEFTRIAXONE 2 GM in SODIUM CHLORIDE 100 ML IVPB ONE (13:00)
[2022-12-25 13:17] VITALS: BP 124/70; PULSE 67; RESP 18; TEMP 97.9
== END 2022-12-25 14:09 | disposition home or self-care (01) ==
LOC: FINFUSION 12:34 → FM/S 12:40 → FINFUSION 14:09
PROVIDERS: ATTEND Internal Medicine
DX: M86.8X7 Other osteomyelitis, ankle and foot (principal); E11.621 Type 2 diabetes mellitus with foot ulcer; L97.519 Non-pressure chronic ulcer of other part of right foot with unspecified severity; L03.115 Cellulitis of right lower limb
CPT/HCPCS: 96365

== ENCOUNTER 2022-12-26 12:38 | Day surgery (SDC) | payer OTHER ==
[2022-12-26] MEDS ORDERED: CEFTRIAXONE 2 GM in DEXTROSE 5%-WATER 100 ML IVPB ONE (13:15)
[2022-12-26 13:22] VITALS: BP 119/70; PULSE 82; RESP 18; TEMP 98.4
== END 2022-12-26 13:59 | disposition home or self-care (01) ==
LOC: FINFUSION 12:38 → FM/S 12:40 → FINFUSION 13:59
PROVIDERS: ATTEND Internal Medicine
DX: E11.621 Type 2 diabetes mellitus with foot ulcer (principal); L97.502 Non-pressure chronic ulcer of other part of unspecified foot with fat layer exposed; L03.115 Cellulitis of right lower limb; E11.65 Type 2 diabetes mellitus with hyperglycemia
CPT/HCPCS: 96365

== ENCOUNTER 2022-12-27 13:01 | Day surgery (SDC) | payer OTHER ==
[2022-12-27] MEDS ORDERED: CEFTRIAXONE 2 GM in SODIUM CHLORIDE 100 ML IVPB SCH (13:45)
[2022-12-27] MEDS ORDERED: CEFEPIME 2 GM in SODIUM CHLORIDE 100 ML IVPB SCH (13:45)
[2022-12-27 14:03] VITALS: BP 125/72; RESP 18; TEMP 97.9
[2022-12-27 14:17] VITALS: PULSE 75
== END 2022-12-27 14:18 | disposition home or self-care (01) ==
LOC: FM/S 13:01 → FINFUSION 13:01
PROVIDERS: ATTEND Internal Medicine
DX: E11.621 Type 2 diabetes mellitus with foot ulcer (principal); L97.502 Non-pressure chronic ulcer of other part of unspecified foot with fat layer exposed; L03.115 Cellulitis of right lower limb; E11.65 Type 2 diabetes mellitus with hyperglycemia
CPT/HCPCS: 96365

== ENCOUNTER 2022-12-28 12:33 | Day surgery (SDC) | payer OTHER ==
[2022-12-28] MEDS ORDERED: CEFTRIAXONE 2 GM in DEXTROSE 5%-WATER 100 ML IVPB ONE (13:00)
[2022-12-28 13:48] VITALS: BP 147/86; PULSE 72; RESP 14; TEMP 97.9
== END 2022-12-28 14:08 | disposition home or self-care (01) ==
LOC: FINFUSION 12:33 → FM/S 12:33 → FINFUSION 14:08
PROVIDERS: ATTEND Internal Medicine
DX: E11.621 Type 2 diabetes mellitus with foot ulcer (principal); L97.502 Non-pressure chronic ulcer of other part of unspecified foot with fat layer exposed; L03.115 Cellulitis of right lower limb; E11.65 Type 2 diabetes mellitus with hyperglycemia
CPT/HCPCS: 96365

== ENCOUNTER 2022-12-29 12:44 | Day surgery (SDC) | payer OTHER ==
[2022-12-29] MEDS ORDERED: CEFTRIAXONE 2 GM in DEXTROSE 5%-WATER 100 ML IVPB ONE (13:30)
[2022-12-29 13:35] VITALS: RESP 18; TEMP 98.4
[2022-12-29 14:03] VITALS: BP 132/82; PULSE 78
[2022-12-29 14:31] LABS: HEMATOCRIT 37.8 % (35.4-49); HEMOGLOBIN 12.6 G/dL (11.7-16.9); MCH 28.8 pg (25.7-33.7); MCHC 33.4 g/dl (32.0-35.9); MEAN CELL VOLUME 86.3 fl (80-96); RBC 4.38 10^6/uL (4.00-5.60); RDW 13.6 % (11.9-15.9); WHITE BLOOD COUNT 9.8 10^3/uL (4.0-10.8)
[2022-12-29 16:41] LABS: POTASSIUM 3.9 mmol/L (3.5-5.1)
[2022-12-29 16:44] LABS: ALBUMIN 3.8 g/dl (3.4-5.0); BLOOD UREA NITROGEN 19.9 mg/dL (7-18); CALCIUM 8.8 mg/dL (8.5-10.1)
[2022-12-29 16:47] LABS: CREATININE 0.8 mg/dL (0.55-1.3)
[2022-12-29 16:49] LABS: BILIRUBIN,TOTAL 0.6 mg/dL (0.2-1); TOT PROT 7.1 g/dl (6.4-8.2)
== END 2022-12-29 14:05 | disposition home or self-care (01) ==
LOC: FINFUSION 12:44 → FM/S 12:51 → FINFUSION 14:05
PROVIDERS: ATTEND Internal Medicine
DX: E11.621 Type 2 diabetes mellitus with foot ulcer (principal); L97.509 Non-pressure chronic ulcer of other part of unspecified foot with unspecified severity; L03.115 Cellulitis of right lower limb; E11.65 Type 2 diabetes mellitus with hyperglycemia
CPT/HCPCS: 36415; 80053; 85027; 86140; 96365

== ENCOUNTER 2022-12-30 12:48 | Day surgery (SDC) | payer OTHER ==
[2022-12-30] MEDS ORDERED: CEFTRIAXONE 2 GM in SODIUM CHLORIDE 100 ML IVPB ONE (13:15)
[2022-12-30 14:05] VITALS: BP 140/78; PULSE 72; RESP 16; TEMP 98
== END 2022-12-30 14:14 | disposition home or self-care (01) ==
LOC: FINFUSION 12:48 → FM/S 12:49 → FINFUSION 14:14
PROVIDERS: ATTEND Internal Medicine
DX: E11.621 Type 2 diabetes mellitus with foot ulcer (principal); L97.509 Non-pressure chronic ulcer of other part of unspecified foot with unspecified severity; L03.115 Cellulitis of right lower limb; E11.65 Type 2 diabetes mellitus with hyperglycemia
CPT/HCPCS: 96365

== ENCOUNTER 2022-12-31 12:55 | Day surgery (SDC) | payer OTHER ==
[2022-12-31] MEDS ORDERED: CEFTRIAXONE 2 GM in SODIUM CHLORIDE 100 ML IVPB ONE (13:15)
[2022-12-31 14:14] VITALS: BP 139/75; PULSE 66; RESP 20; TEMP 98.1
== END 2022-12-31 14:17 | disposition home or self-care (01) ==
LOC: FM/S 12:55 → FINFUSION 12:55
PROVIDERS: ATTEND Internal Medicine
DX: E11.621 Type 2 diabetes mellitus with foot ulcer (principal); L97.509 Non-pressure chronic ulcer of other part of unspecified foot with unspecified severity; L03.115 Cellulitis of right lower limb; E11.65 Type 2 diabetes mellitus with hyperglycemia
CPT/HCPCS: 96365

== ENCOUNTER 2023-01-01 12:50 | Day surgery (SDC) | payer OTHER ==
[2023-01-01] MEDS ORDERED: CEFTRIAXONE 2 GM in SODIUM CHLORIDE 100 ML IVPB ONE (13:00)
[2023-01-01 14:05] VITALS: BP 123/85; PULSE 86; RESP 16; TEMP 97.6
== END 2023-01-01 15:11 | disposition home or self-care (01) ==
LOC: FINFUSION 12:50 → FM/S 12:50 → FINFUSION 15:11
PROVIDERS: ATTEND Internal Medicine
DX: E11.621 Type 2 diabetes mellitus with foot ulcer (principal); L97.509 Non-pressure chronic ulcer of other part of unspecified foot with unspecified severity; L03.115 Cellulitis of right lower limb; E11.65 Type 2 diabetes mellitus with hyperglycemia
CPT/HCPCS: 96365

== ENCOUNTER 2023-01-02 12:55 | Day surgery (SDC) | payer OTHER ==
[2023-01-02 13:14] VITALS: BP 124/78; PULSE 68; RESP 18; TEMP 98.3
[2023-01-02] MEDS ORDERED: CEFTRIAXONE 2 GM in SODIUM CHLORIDE 100 ML IVPB ONE (13:15)
== END 2023-01-02 13:46 | disposition home or self-care (01) ==
LOC: FINFUSION 12:55 → FM/S 12:56 → FINFUSION 13:46
PROVIDERS: ATTEND Internal Medicine
DX: M86.8X7 Other osteomyelitis, ankle and foot (principal)
CPT/HCPCS: 96365

== ENCOUNTER 2023-01-03 13:18 | Day surgery (SDC) | payer OTHER ==
[2023-01-03] MEDS ORDERED: CEFTRIAXONE 2 GM in SODIUM CHLORIDE 100 ML IVPB SCH (13:45)
[2023-01-03 14:21] VITALS: BP 124/78; PULSE 70; RESP 16; TEMP 98
== END 2023-01-03 14:30 | disposition home or self-care (01) ==
LOC: FINFUSION 13:18 → FM/S 13:19 → FINFUSION 14:30
PROVIDERS: ATTEND Internal Medicine
DX: M86.8X7 Other osteomyelitis, ankle and foot (principal)
CPT/HCPCS: 96365

== ENCOUNTER 2023-01-04 12:59 | Day surgery (SDC) | payer OTHER ==
[2023-01-04] MEDS ORDERED: CEFTRIAXONE 2 GM in DEXTROSE 5%-WATER 100 ML IVPB ONE (13:30)
[2023-01-04 13:35] VITALS: RESP 18; TEMP 97.9
[2023-01-04 14:01] VITALS: BP 126/56; PULSE 71
== END 2023-01-04 14:02 | disposition home or self-care (01) ==
LOC: FINFUSION 12:59 → FM/S 13:02 → FINFUSION 14:02
PROVIDERS: ATTEND Internal Medicine
DX: M86.8X7 Other osteomyelitis, ankle and foot (principal)
CPT/HCPCS: 96365

== ENCOUNTER 2023-01-05 12:52 | Day surgery (SDC) | payer OTHER ==
[2023-01-05] MEDS ORDERED: CEFTRIAXONE 2 GM in SODIUM CHLORIDE 100 ML IVPB ONE (13:30)
[2023-01-05 14:22] LABS: HEMATOCRIT 37.7 % (35.4-49); HEMOGLOBIN 12.5 G/dL (11.7-16.9); MCH 28.3 pg (25.7-33.7); MCHC 33.1 g/dl (32.0-35.9); MEAN CELL VOLUME 85.6 fl (80-96); MEAN PLT VOLUME 8.5 fl (7.5-11.1); PLATELET COUNT 218.1 10^3/uL (134-434); RBC 4.41 10^6/uL (4.00-5.60); RDW 14.6 % (11.9-15.9); WHITE BLOOD COUNT 8.3 10^3/uL (4.0-10.8)
[2023-01-05 14:43] LABS: ALBUMIN 4.2 g/dl (3.4-5.0); BILIRUBIN,TOTAL 0.4 mg/dl (0.2-1); CALCIUM 9.1 mg/dl (8.5-10.1); CREATININE 0.6 mg/dl (0.6-1.3); POTASSIUM 4.1 mmol/L (3.5-5.1); TOT PROT 6.3 g/dl (6.4-8.2)
[2023-01-05 15:10] VITALS: BP 148/80; PULSE 65; RESP 16; TEMP 97.8
== END 2023-01-05 14:20 | disposition home or self-care (01) ==
LOC: FINFUSION 12:52 → FM/S 12:55 → FINFUSION 14:20
PROVIDERS: ATTEND Internal Medicine
DX: M86.8X7 Other osteomyelitis, ankle and foot (principal); E11.621 Type 2 diabetes mellitus with foot ulcer; L97.509 Non-pressure chronic ulcer of other part of unspecified foot with unspecified severity; L03.115 Cellulitis of right lower limb
CPT/HCPCS: 36415; 80053; 85027; 86140; 96365

== ENCOUNTER 2023-01-06 13:02 | Day surgery (SDC) | payer OTHER ==
[2023-01-06] MEDS ORDERED: CEFTRIAXONE 2 GM in SODIUM CHLORIDE 100 ML IVPB ONE (13:15)
[2023-01-06 14:01] VITALS: BP 125/78; PULSE 67; RESP 16; TEMP 97.6
== END 2023-01-06 14:02 | disposition home or self-care (01) ==
LOC: FINFUSION 13:02 → FM/S 13:06 → FINFUSION 14:02
PROVIDERS: ATTEND Internal Medicine
DX: M86.8X7 Other osteomyelitis, ankle and foot (principal); E11.621 Type 2 diabetes mellitus with foot ulcer; L03.032 Cellulitis of left toe; E11.65 Type 2 diabetes mellitus with hyperglycemia
CPT/HCPCS: 96365

== ENCOUNTER 2023-01-07 12:43 | Day surgery (SDC) | payer OTHER ==
[2023-01-07] MEDS ORDERED: CEFTRIAXONE 2 GM in SODIUM CHLORIDE 100 ML IVPB ONE (13:00)
[2023-01-07 14:00] VITALS: BP 116/68; PULSE 71; RESP 19; TEMP 98
== END 2023-01-07 14:00 | disposition home or self-care (01) ==
LOC: FINFUSION 12:43 → FM/S 12:44 → FINFUSION 14:00
PROVIDERS: ATTEND Internal Medicine
DX: M86.8X7 Other osteomyelitis, ankle and foot (principal); E11.621 Type 2 diabetes mellitus with foot ulcer; L03.115 Cellulitis of right lower limb; E11.65 Type 2 diabetes mellitus with hyperglycemia
CPT/HCPCS: 96365

== ENCOUNTER 2023-01-08 13:02 | Day surgery (SDC) | payer OTHER ==
[2023-01-08 13:35] VITALS: BP 137/64; RESP 18; TEMP 98.1
[2023-01-08] MEDS ORDERED: CEFTRIAXONE 2 GM in DEXTROSE 5%-WATER 100 ML IVPB ONE (13:45)
[2023-01-08 14:02] VITALS: PULSE 68
== END 2023-01-08 14:02 | disposition home or self-care (01) ==
LOC: FINFUSION 13:02 → FM/S 13:03 → FINFUSION 14:02
PROVIDERS: ATTEND Internal Medicine
DX: M86.8X7 Other osteomyelitis, ankle and foot (principal); E11.621 Type 2 diabetes mellitus with foot ulcer; L03.115 Cellulitis of right lower limb; E11.65 Type 2 diabetes mellitus with hyperglycemia
CPT/HCPCS: 96365

== ENCOUNTER 2023-01-09 12:33 | Day surgery (SDC) | payer OTHER ==
[2023-01-09] MEDS ORDERED: CEFTRIAXONE 2 GM in DEXTROSE 5%-WATER 100 ML IVPB ONE (13:00)
[2023-01-09 15:03] VITALS: BP 127/64; PULSE 68; RESP 18; TEMP 97.9
== END 2023-01-09 14:00 | disposition home or self-care (01) ==
LOC: FINFUSION 12:33 → FM/S 12:40 → FINFUSION 14:00
PROVIDERS: ATTEND Internal Medicine
DX: M86.8X7 Other osteomyelitis, ankle and foot (principal)
CPT/HCPCS: 96365

== ENCOUNTER 2023-01-10 13:13 | Day surgery (SDC) | payer OTHER ==
[2023-01-10] MEDS ORDERED: CEFTRIAXONE 2 GM in SODIUM CHLORIDE 100 ML IVPB SCH (14:15)
[2023-01-10 15:05] VITALS: BP 143/93; PULSE 86; RESP 15; TEMP 97.9
== END 2023-01-10 15:05 | disposition home or self-care (01) ==
LOC: FINFUSION 13:13 → FM/S 13:15 → FINFUSION 15:05
PROVIDERS: ATTEND Internal Medicine
DX: M86.8X7 Other osteomyelitis, ankle and foot (principal); E11.621 Type 2 diabetes mellitus with foot ulcer; L03.115 Cellulitis of right lower limb; E11.65 Type 2 diabetes mellitus with hyperglycemia
CPT/HCPCS: 96365; 96367

== ENCOUNTER 2023-01-11 12:56 | Day surgery (SDC) | payer OTHER ==
[2023-01-11] MEDS ORDERED: CEFTRIAXONE 2 GM in DEXTROSE 5%-WATER 100 ML IVPB ONE (13:15)
[2023-01-11 14:23] VITALS: BP 130/78; PULSE 72; RESP 16; TEMP 98.3
== END 2023-01-11 14:25 | disposition home or self-care (01) ==
LOC: FINFUSION 12:56 → FM/S 12:57 → FINFUSION 14:25
PROVIDERS: ATTEND Internal Medicine
DX: M86.8X7 Other osteomyelitis, ankle and foot (principal); E11.621 Type 2 diabetes mellitus with foot ulcer; L03.115 Cellulitis of right lower limb; E11.65 Type 2 diabetes mellitus with hyperglycemia
CPT/HCPCS: 96365

== ENCOUNTER 2023-01-12 12:46 | Day surgery (SDC) | payer OTHER ==
[2023-01-12] MEDS ORDERED: CEFTRIAXONE 2 GM in SODIUM CHLORIDE 100 ML IVPB ONE (13:00)
[2023-01-12 13:56] VITALS: BP 115/70; PULSE 76; RESP 16; TEMP 98.3
[2023-01-12 13:58] LABS: HEMATOCRIT 36.2 % (35.4-49); HEMOGLOBIN 12.1 G/dL (11.7-16.9); MCH 29.1 pg (25.7-33.7); MCHC 33.4 g/dl (32.0-35.9); MEAN CELL VOLUME 86.9 fl (80-96); MEAN PLT VOLUME 8.5 fl (7.5-11.1); PLATELET COUNT 221.2 10^3/uL (134-434); RBC 4.16 10^6/uL (4.00-5.60); RDW 14.4 % (11.9-15.9); WHITE BLOOD COUNT 9.5 10^3/uL (4.0-10.8)
[2023-01-12 14:09] LABS: ALBUMIN 4.2 g/dl (3.4-5.0); BILIRUBIN,TOTAL 0.5 mg/dl (0.2-1); CALCIUM 9.4 mg/dl (8.5-10.1); CREATININE 0.7 mg/dl (0.6-1.3); POTASSIUM 4.2 mmol/L (3.5-5.1); TOT PROT 6.7 g/dl (6.4-8.2)
== END 2023-01-12 13:56 | disposition home or self-care (01) ==
LOC: FINFUSION 12:46 → FM/S 12:49 → FINFUSION 13:56
PROVIDERS: ATTEND Internal Medicine
DX: M86.8X7 Other osteomyelitis, ankle and foot (principal); S91.301D Unspecified open wound, right foot, subsequent encounter; X58.XXXD Exposure to other specified factors, subsequent encounter; E11.621 Type 2 diabetes mellitus with foot ulcer; L03.115 Cellulitis of right lower limb; E11.65 Type 2 diabetes mellitus with hyperglycemia
CPT/HCPCS: 36415; 80053; 85027; 86140; 96365

== ENCOUNTER 2023-01-13 13:13 | Day surgery (SDC) | payer OTHER ==
[2023-01-13] MEDS ORDERED: CEFTRIAXONE 2 GM in SODIUM CHLORIDE 100 ML IVPB ONE (13:45)
[2023-01-13 16:50] VITALS: BP 140/80; PULSE 77; RESP 16; TEMP 97.5
== END 2023-01-13 14:37 | disposition home or self-care (01) ==
LOC: FINFUSION 13:13 → FM/S 13:14 → FINFUSION 14:37
PROVIDERS: ATTEND Internal Medicine
DX: M86.8X7 Other osteomyelitis, ankle and foot (principal); L03.032 Cellulitis of left toe; E11.628 Type 2 diabetes mellitus with other skin complications; L08.9 Local infection of the skin and subcutaneous tissue, unspecified
CPT/HCPCS: 96365

== ENCOUNTER 2023-01-14 12:44 | Day surgery (SDC) | payer OTHER ==
[2023-01-14] MEDS ORDERED: CEFTRIAXONE 2 GM in DEXTROSE 5%-WATER 100 ML IVPB ONE (13:00)
[2023-01-14 13:51] VITALS: BP 135/73; PULSE 72; RESP 18; TEMP 98.1
== END 2023-01-14 14:05 | disposition home or self-care (01) ==
LOC: FINFUSION 12:44 → FM/S 12:45 → FINFUSION 14:05
PROVIDERS: ATTEND Internal Medicine
DX: M86.8X7 Other osteomyelitis, ankle and foot (principal); L03.032 Cellulitis of left toe; E11.628 Type 2 diabetes mellitus with other skin complications; L08.9 Local infection of the skin and subcutaneous tissue, unspecified
CPT/HCPCS: 96365

== ENCOUNTER 2023-01-15 12:56 | Day surgery (SDC) | payer OTHER ==
[2023-01-15] MEDS ORDERED: CEFTRIAXONE 2 GM in SODIUM CHLORIDE 100 ML IVPB ONE (13:15)
[2023-01-15 14:28] VITALS: BP 128/78; PULSE 85; RESP 16; TEMP 98.6
== END 2023-01-15 14:30 | disposition home or self-care (01) ==
LOC: FM/S 12:56 → FINFUSION 12:56
PROVIDERS: ATTEND Internal Medicine
DX: M86.8X7 Other osteomyelitis, ankle and foot (principal); L03.032 Cellulitis of left toe; L08.9 Local infection of the skin and subcutaneous tissue, unspecified; E11.628 Type 2 diabetes mellitus with other skin complications
CPT/HCPCS: 96365

== ENCOUNTER 2023-01-16 13:29 | Day surgery (SDC) | payer OTHER ==
[2023-01-16] MEDS ORDERED: CEFTRIAXONE 2 GM in DEXTROSE 5%-WATER 100 ML IVPB ONE (13:45)
[2023-01-16 14:39] VITALS: BP 128/86; PULSE 78; RESP 16; TEMP 98.2
== END 2023-01-16 14:40 | disposition home or self-care (01) ==
LOC: FINFUSION 13:29 → FM/S 13:30 → FINFUSION 14:40
PROVIDERS: ATTEND Internal Medicine
DX: M86.8X7 Other osteomyelitis, ankle and foot (principal); L03.032 Cellulitis of left toe; L08.9 Local infection of the skin and subcutaneous tissue, unspecified; E11.628 Type 2 diabetes mellitus with other skin complications
CPT/HCPCS: 96365

== ENCOUNTER 2023-01-17 12:52 | Day surgery (SDC) | payer OTHER ==
[2023-01-17] MEDS ORDERED: CEFTRIAXONE 2 GM in SODIUM CHLORIDE 100 ML IVPB ONE (13:15)
[2023-01-17 13:57] VITALS: BP 130/80; PULSE 76; RESP 16; TEMP 98.2
== END 2023-01-17 13:57 | disposition home or self-care (01) ==
LOC: FM/S 12:52 → FINFUSION 12:52
PROVIDERS: ATTEND Internal Medicine
DX: M86.8X7 Other osteomyelitis, ankle and foot (principal); L03.032 Cellulitis of left toe; L08.9 Local infection of the skin and subcutaneous tissue, unspecified; E11.628 Type 2 diabetes mellitus with other skin complications
CPT/HCPCS: 96365

== ENCOUNTER 2023-01-18 12:37 | Day surgery (SDC) | payer OTHER ==
[2023-01-18] MEDS ORDERED: CEFTRIAXONE 2 GM in DEXTROSE 5%-WATER 100 ML IVPB ONE (13:15)
[2023-01-18 13:46] VITALS: BP 126/76; PULSE 64; RESP 16; TEMP 98.3
== END 2023-01-18 13:46 | disposition home or self-care (01) ==
LOC: FINFUSION 12:37 → FM/S 12:38 → FINFUSION 13:46
PROVIDERS: ATTEND Internal Medicine
DX: M86.8X7 Other osteomyelitis, ankle and foot (principal); L03.032 Cellulitis of left toe; L08.9 Local infection of the skin and subcutaneous tissue, unspecified; E11.628 Type 2 diabetes mellitus with other skin complications
CPT/HCPCS: 96365

== ENCOUNTER 2023-01-19 13:01 | Day surgery (SDC) | payer OTHER ==
[2023-01-19] MEDS ORDERED: CEFTRIAXONE 2 GM in DEXTROSE 5%-WATER 100 ML IVPB ONE (13:45)
[2023-01-19 14:19] VITALS: BP 130/86; PULSE 75; RESP 16; TEMP 98.2
== END 2023-01-19 14:19 | disposition home or self-care (01) ==
LOC: FINFUSION 13:01 → FM/S 13:03 → FINFUSION 14:19
PROVIDERS: ATTEND Internal Medicine
DX: M86.8X7 Other osteomyelitis, ankle and foot (principal); L03.032 Cellulitis of left toe; L08.9 Local infection of the skin and subcutaneous tissue, unspecified; E11.628 Type 2 diabetes mellitus with other skin complications
CPT/HCPCS: 96365

== ENCOUNTER 2023-01-20 12:34 | Day surgery (SDC) | payer OTHER ==
[2023-01-20] MEDS ORDERED: CEFTRIAXONE 2 GM in DEXTROSE 5%-WATER 100 ML IVPB ONE (13:00)
[2023-01-20 13:42] VITALS: PULSE 67; RESP 18; TEMP 98.6
[2023-01-20 13:43] VITALS: BP 130/78
== END 2023-01-20 13:50 | disposition home or self-care (01) ==
LOC: FINFUSION 12:34 → FM/S 12:37 → FINFUSION 13:50
PROVIDERS: ATTEND Internal Medicine
DX: M86.8X7 Other osteomyelitis, ankle and foot (principal); L03.032 Cellulitis of left toe; L08.9 Local infection of the skin and subcutaneous tissue, unspecified; E11.628 Type 2 diabetes mellitus with other skin complications
CPT/HCPCS: 96365

== ENCOUNTER 2023-01-21 12:55 | Day surgery (SDC) | payer OTHER ==
[2023-01-21] MEDS ORDERED: CEFTRIAXONE 2 GM in SODIUM CHLORIDE 100 ML IVPB ONE (13:15)
[2023-01-21 14:01] VITALS: BP 145/86; PULSE 75; RESP 16; TEMP 97.7
== END 2023-01-21 14:18 | disposition home or self-care (01) ==
LOC: FINFUSION 12:55 → FM/S 12:56 → FINFUSION 14:18
PROVIDERS: ATTEND Internal Medicine
DX: M86.8X7 Other osteomyelitis, ankle and foot (principal); L03.032 Cellulitis of left toe; L08.9 Local infection of the skin and subcutaneous tissue, unspecified; E11.628 Type 2 diabetes mellitus with other skin complications
CPT/HCPCS: 96365

== ENCOUNTER 2023-01-22 12:49 | Day surgery (SDC) | payer OTHER ==
[2023-01-22] MEDS ORDERED: CEFTRIAXONE 2 GM in SODIUM CHLORIDE 100 ML IVPB ONE (13:15)
[2023-01-22 13:46] VITALS: BP 132/86; PULSE 85; RESP 16; TEMP 98.2
== END 2023-01-22 13:47 | disposition home or self-care (01) ==
LOC: FINFUSION 12:49 → FM/S 12:50 → FINFUSION 13:47
PROVIDERS: ATTEND Internal Medicine
DX: M86.8X7 Other osteomyelitis, ankle and foot (principal); L03.032 Cellulitis of left toe; E11.621 Type 2 diabetes mellitus with foot ulcer; Z79.4 Long term (current) use of insulin; L08.89 Other specified local infections of the skin and subcutaneous tissue
CPT/HCPCS: 96365

== ENCOUNTER 2023-01-23 12:53 | Day surgery (SDC) | payer OTHER ==
[2023-01-23] MEDS ORDERED: CEFTRIAXONE 2 GM in DEXTROSE 5%-WATER 100 ML IVPB ONE (13:15)
[2023-01-23 13:33] VITALS: RESP 18; TEMP 97.8
[2023-01-23 13:48] VITALS: BP 126/67; PULSE 67
== END 2023-01-23 13:48 | disposition home or self-care (01) ==
LOC: FM/S 12:53 → FINFUSION 12:53
PROVIDERS: ATTEND Internal Medicine
DX: M86.8X7 Other osteomyelitis, ankle and foot (principal); E11.628 Type 2 diabetes mellitus with other skin complications; Z79.4 Long term (current) use of insulin; L08.89 Other specified local infections of the skin and subcutaneous tissue
CPT/HCPCS: 96365

== ENCOUNTER 2023-01-24 13:17 | Day surgery (SDC) | payer OTHER ==
[2023-01-24] MEDS ORDERED: CEFTRIAXONE 2 GM in SODIUM CHLORIDE 100 ML IVPB SCH (13:30)
[2023-01-24 14:26] VITALS: BP 126/67; PULSE 67; RESP 18; TEMP 97.8
== END 2023-01-24 14:26 | disposition home or self-care (01) ==
LOC: FINFUSION 13:17 → FM/S 13:17 → FINFUSION 14:26
PROVIDERS: ATTEND Internal Medicine
DX: M86.8X7 Other osteomyelitis, ankle and foot (principal); E11.628 Type 2 diabetes mellitus with other skin complications; Z79.4 Long term (current) use of insulin; L08.89 Other specified local infections of the skin and subcutaneous tissue
CPT/HCPCS: 96365

== ENCOUNTER 2023-01-25 13:00 | Day surgery (SDC) | payer OTHER ==
[2023-01-25] MEDS ORDERED: CEFTRIAXONE 2 GM in SODIUM CHLORIDE 100 ML IVPB SCH (13:30)
[2023-01-25 13:51] VITALS: BP 112/62; PULSE 71; RESP 14; TEMP 98.3
== END 2023-01-25 13:52 | disposition home or self-care (01) ==
LOC: FINFUSION 13:00 → FM/S 13:01 → FINFUSION 13:52
PROVIDERS: ATTEND Internal Medicine
DX: M86.8X7 Other osteomyelitis, ankle and foot (principal); E11.628 Type 2 diabetes mellitus with other skin complications; Z79.4 Long term (current) use of insulin; L08.89 Other specified local infections of the skin and subcutaneous tissue
CPT/HCPCS: 96365

== ENCOUNTER 2023-01-26 13:00 | Day surgery (SDC) | payer OTHER ==
[2023-01-26] MEDS ORDERED: CEFTRIAXONE 2 GM in SODIUM CHLORIDE 100 ML IVPB ONE (13:15)
[2023-01-26 14:32] LABS: ALBUMIN 4.3 g/dl (3.4-5.0); BILIRUBIN,TOTAL 0.5 mg/dl (0.2-1); CALCIUM 9.4 mg/dl (8.5-10.1); CREATININE 0.7 mg/dl (0.6-1.3); POTASSIUM 4.3 mmol/L (3.5-5.1); TOT PROT 6.9 g/dl (6.4-8.2)
[2023-01-26 14:37] VITALS: BP 123/75; PULSE 84; RESP 16; TEMP 98.2
[2023-01-26 14:49] LABS: HEMATOCRIT 38.3 % (35.4-49); HEMOGLOBIN 12.7 G/dL (11.7-16.9); MCH 28.3 pg (25.7-33.7); MCHC 33.2 g/dl (32.0-35.9); MEAN CELL VOLUME 85.5 fl (80-96); MEAN PLT VOLUME 8.5 fl (7.5-11.1); PLATELET COUNT 248.3 10^3/uL (134-434); RBC 4.48 10^6/uL (4.00-5.60); RDW 14.6 % (11.9-15.9); WHITE BLOOD COUNT 8.1 10^3/uL (4.0-10.8)
== END 2023-01-26 14:42 | disposition home or self-care (01) ==
LOC: FINFUSION 13:00 → FM/S 13:01 → FINFUSION 14:42
PROVIDERS: ATTEND Internal Medicine
DX: M86.8X7 Other osteomyelitis, ankle and foot (principal); E11.628 Type 2 diabetes mellitus with other skin complications; L08.89 Other specified local infections of the skin and subcutaneous tissue; Z79.4 Long term (current) use of insulin
CPT/HCPCS: 36415; 80053; 85027; 86140; 96365

== ENCOUNTER 2023-01-27 13:05 | Day surgery (SDC) | payer OTHER ==
[2023-01-27] MEDS ORDERED: CEFTRIAXONE 2 GM in SODIUM CHLORIDE 100 ML IVPB ONE (13:15)
[2023-01-27 13:39] VITALS: BP 126/67; PULSE 76; RESP 18; TEMP 97.8
== END 2023-01-27 13:53 | disposition home or self-care (01) ==
LOC: FINFUSION 13:05 → FM/S 13:05 → FINFUSION 13:53
PROVIDERS: ATTEND Internal Medicine
DX: M86.8X7 Other osteomyelitis, ankle and foot (principal); E11.628 Type 2 diabetes mellitus with other skin complications; L08.89 Other specified local infections of the skin and subcutaneous tissue; Z97.4 Presence of external hearing-aid
CPT/HCPCS: 96365

== ENCOUNTER 2023-01-28 12:53 | Day surgery (SDC) | payer OTHER ==
[2023-01-28] MEDS ORDERED: CEFTRIAXONE 2 GM in SODIUM CHLORIDE 100 ML IVPB ONE (13:15)
[2023-01-28 14:21] VITALS: BP 127/66; PULSE 72; RESP 18; TEMP 97.6
== END 2023-01-28 14:24 | disposition home or self-care (01) ==
LOC: FINFUSION 12:53 → FM/S 12:53 → FINFUSION 14:24
PROVIDERS: ATTEND Internal Medicine
DX: M86.8X7 Other osteomyelitis, ankle and foot (principal); L03.032 Cellulitis of left toe; L08.9 Local infection of the skin and subcutaneous tissue, unspecified; E11.628 Type 2 diabetes mellitus with other skin complications
CPT/HCPCS: 96365

== ENCOUNTER 2023-09-06 12:50 | Emergency (ER) | payer OTHER ==
[2023-09-06 12:54] VITALS: TEMP 97.9
[2023-09-06] MEDS ORDERED: MECLIZINE HCL 25 MG TABLET (FP) ONE (13:54)
[2023-09-06] MEDS ORDERED: ACETAMINOPHEN 325 MG TABLET (FP) ONE (13:54)
[2023-09-06] MEDS: MECLIZINE HCL 25 MG TABLET (FP) PO ONE (13:58)
[2023-09-06] MEDS: ACETAMINOPHEN 325 MG TABLET (FP) PO ONE (13:58)
[2023-09-06 15:24] LABS: BASO % 0.3 % (0-2.0); EOS % 1.6 % (0-4.5); HEMATOCRIT 37.5 % (35.4-49); HEMOGLOBIN 13.1 GM/dL (11.7-16.9); LYMPH % 25.4 % (8-40); MCH 29.2 pg (25.7-33.7); MCHC 34.9 g/dl (32.0-35.9); MEAN CELL VOLUME 83.8 fl (80-96); MEAN PLT VOLUME 7.6 fl (7.5-11.1); MONO % 8.1 % (3.8-10.2); NEUT % 64.6 % (42.8-82.8); PLATELET COUNT 234 10^3/uL (134-434); RBC 4.47 M/mm3 (4.00-5.60); RDW 13.5 % (11.9-15.9); WHITE BLOOD COUNT 9.3 K/mm3 (4.0-10.0)
[2023-09-06 15:30] VITALS: BP 141/80; PULSE 71; RESP 14
[2023-09-06] MEDS ORDERED: ASPIRIN 81 MG CHEWABLE TABLETS ONE (15:37)
[2023-09-06 15:38] LABS: POTASSIUM 3.8 mmol/L (3.5-5.1)
[2023-09-06 15:40] LABS: CALCIUM 8.3 mg/dL (8.5-10.1)
[2023-09-06 15:41] LABS: ALBUMIN 3.6 g/dl (3.4-5.0)
[2023-09-06] MEDS: ASPIRIN 81 MG CHEWABLE TABLETS PO ONE (15:43)
[2023-09-06 15:44] LABS: CREATININE 0.7 mg/dL (0.55-1.3)
[2023-09-06 15:45] LABS: BILIRUBIN,TOTAL 0.5 mg/dL (0.2-1); TOT PROT 7.1 g/dl (6.4-8.2)
== END 2023-09-06 16:16 | disposition home or self-care (01) ==
LOC: JER 12:50
DX: R42 Dizziness and giddiness (principal); R26.81 Unsteadiness on feet; R51.9 Headache, unspecified; R53.1 Weakness
CPT/HCPCS: 36415; 70450-TC; 80053; 84484; 85025; 93005; 93010; 99285-25

== ENCOUNTER 2024-06-10 11:05 | Observation (INO) | payer OTHER ==
[2024-06-10] MEDS ORDERED: ACETAMINOPHEN INJECTION 100 ML ONE (13:52)
[2024-06-10] MEDS ORDERED: MAG HYDROX/AL HYDROX/SIMETH 30 ML UNIT-DOSE CUP ONE (13:53)
[2024-06-10] MEDS ORDERED: ONDANSETRON 4 MG/2 ML VIAL ONE (13:53)
[2024-06-10] MEDS ORDERED: FAMOTIDINE 20 MG/50 ML IVPB 20 MG/50 ML MG IVPB ONE (13:53)
[2024-06-10] MEDS: FAMOTIDINE 20 MG/50 ML IVPB 20 MG/50 ML MG IVPB ONE (14:28)
[2024-06-10] MEDS: ONDANSETRON 4 MG/2 ML VIAL IVPUSH ONE (14:28)
[2024-06-10] MEDS: SODIUM CHLORIDE 0.9% 500 ML INFUS.BAG IV ONE (14:28)
[2024-06-10] MEDS: ACETAMINOPHEN 1000 MG/100 ML BAG IVPB ONE (14:28)
[2024-06-10] MEDS: MAG HYDROX/AL HYDROX/SIMETH -MYLANTA- ORAL SUSPENSION PO ONE (14:29)
[2024-06-10 14:42] LABS: ABSOLUTE IMMATURE GRANULOCYTES 0.02 x10^3/uL (0.0-0.031); BASOPHILS # 0.02 x10^3/uL (0.01-0.08); EOSINOPHIL % 1.6 % (0.8-7.0); EOSINOPHILS # 0.16 x10^3/uL (0.04-0.54); HEMATOCRIT 34.4 % (40.1-51.0); HEMOGLOBIN 11.4 g/dL (13.7-17.5); MCHC 33.1 g/dl (32.3-36.5); MEAN CELL VOLUME 84.7 fl (79.0-92.2); MONOCYTE # 0.56 x10^3/uL (0.30-0.82); MONOCYTE % 5.5 % (5.3-12.2); PLATELET COUNT 252 x10^3/uL (163-337); RDW 12.4 % (12.2-16.4)
[2024-06-10 15:01] LABS: POTASSIUM 3.8 mmol/L (3.5-5.1)
[2024-06-10 15:02] LABS: CALCIUM 9.6 mg/dL (8.5-10.1)
[2024-06-10 15:07] LABS: TOT PROT 7.3 g/dl (6.4-8.2)
[2024-06-10 15:10] LABS: CREATININE 0.7 mg/dL (0.55-1.3)
[2024-06-10 15:16] LABS: BILIRUBIN,TOTAL 0.6 mg/dL (0.2-1)
[2024-06-10] MEDS ORDERED: PANTOPRAZOLE 40 MG TABLET PO ONE (17:52)
[2024-06-10] MEDS: PANTOPRAZOLE 40 MG TABLET PO SCH (17:54)
[2024-06-10] MEDS ORDERED: ONDANSETRON 4 MG/2 ML VIAL IVPUSH PRN (18:15)
[2024-06-10] MEDS: PANTOPRAZOLE SODIUM 40 MG VIAL IVPUSH SCH (18:22)
[2024-06-10] MEDS: SODIUM CHLORIDE 0.9%/KCL 20 MEQ/1,000 ML INFUS.BAG IV SCH (19:16)
[2024-06-10 20:58] VITALS: RESP 18; BMI 32.4
[2024-06-10] MEDS: MAG HYDROX/AL HYDROX/SIMETH 30 ML UNIT-DOSE CUP PO PRN (21:29)
[2024-06-10] MEDS: INSULIN ASPART SLIDING SCALE (NOVOLOG) 1 VIAL SQ SCH (21:38)
[2024-06-10] MEDS: ACETAMINOPHEN 325 MG TABLET (FP) PO PRN (21:42)
[2024-06-10] MEDS: FAMOTIDINE 20 MG TABLET PO ONE (21:47)
[2024-06-11] MEDS: KETOROLAC TROMETHAMINE 15 MG/ML VIAL IVPUSH ONE (06:24)
[2024-06-11 08:19] LABS: Reticulocyte % 1.36 % (0.51-1.81)
[2024-06-11 08:21] LABS: ABSOLUTE IMMATURE GRANULOCYTES 0.02 x10^3/uL (0.0-0.031); BASOPHILS # 0.01 x10^3/uL (0.01-0.08); EOSINOPHIL % 2.2 % (0.8-7.0); EOSINOPHILS # 0.21 x10^3/uL (0.04-0.54); HEMATOCRIT 34.6 % (40.1-51.0); HEMOGLOBIN 11.5 g/dL (13.7-17.5); MCHC 33.2 g/dl (32.3-36.5); MEAN CELL VOLUME 85.4 fl (79.0-92.2); MEAN PLT VOLUME 9.8 fl (9.4-12.4); MONOCYTE # 0.65 x10^3/uL (0.30-0.82); MONOCYTE % 6.9 % (5.3-12.2); PLATELET COUNT 255 x10^3/uL (163-337); RDW 12.6 % (12.2-16.4)
[2024-06-11 08:41] LABS: POTASSIUM 4.2 mmol/L (3.5-5.1)
[2024-06-11 08:43] LABS: ALBUMIN 3.8 g/dl (3.4-5.0); CALCIUM 9.4 mg/dL (8.5-10.1); MAGNESIUM 1.9 mg/dL (1.8-2.4)
[2024-06-11 08:46] LABS: CREATININE 0.7 mg/dL (0.55-1.3)
[2024-06-11 08:47] LABS: PHOSPHOROUS 3.4 mg/dL (2.5-4.9)
[2024-06-11 08:48] LABS: BILIRUBIN,TOTAL 0.4 mg/dL (0.2-1)
[2024-06-11 09:05] VITALS: BP 140/76; PULSE 73; TEMP 97.7
[2024-06-11] MEDS: LOSARTAN POTASSIUM 25 MG TABLET PO SCH (09:27)
[2024-06-11] MEDS: ENOXAPARIN NA (PORCINE) 40 MG/0.4 ML DISP.SYRIN SQ SCH (09:27)
[2024-06-11] MEDS ORDERED: ENOXAPARIN NA (PORCINE) 40 MG/0.4 ML DISP.SYRIN SQ SCH (10:00)
== END 2024-06-11 11:55 | disposition home or self-care (01) ==
LOC: JER 11:05 → JERBED 17:15 → J6S 20:21
PROVIDERS: ADMIT Student in an Organized Health Care Education/Training Program; ATTEND Internal Medicine
PROC: 3E023GC Introduction of Other Therapeutic Substance into Muscle, Percutaneous Approach (ICD-10-PCS; principal; 2024-06-10)
PROC: 3E033NZ Introduction of Analgesics, Hypnotics, Sedatives into Peripheral Vein, Percutaneous Approach (ICD-10-PCS; 2024-06-10)
PROC: 3E033GC Introduction of Other Therapeutic Substance into Peripheral Vein, Percutaneous Approach (ICD-10-PCS; 2024-06-10)
PROC: 3E0337Z Introduction of Electrolytic and Water Balance Substance into Peripheral Vein, Percutaneous Approach (ICD-10-PCS; 2024-06-10)
DX: R07.9 Chest pain, unspecified (principal); R10.13 Epigastric pain; I10 Essential (primary) hypertension; E11.9 Type 2 diabetes mellitus without complications; D50.9 Iron deficiency anemia, unspecified; Z86.73 Personal history of transient ischemic attack (TIA), and cerebral infarction without residual deficits
CPT/HCPCS: 36415; 71045-TC-FY; 71275-TC; 74174-TC; 76705-TC; 80053; 80061; 82728; 82962; 83036; 83540; 83550; 83690; 83735; 84100; 84484; 85025; 85610; 85730; 86803; 87389; 93005; 93010; 96365; 96367; 96372; 96375; 99285-25; G0378; J0131